=== PATIENT | female | born 1965 | race Caucasian/White ===

== ENCOUNTER 2019-11-21 16:29 | Emergency (ER) | payer OTHER, SELFPAY ==
--- NOTE | ~2019-11-21 | XR_ITS ---
EXAMINATION: XR chest 2V DATE: 11/21/2019 17:09 INDICATION: Palpitations. Heart murmur. Lung nodules. TECHNIQUE: PA and lateral views of the chest were obtained. COMPARISON: Chest radiograph dated 07/27/2017 FINDINGS: The lungs remain clear with no focal airspace opacities, pulmonary edema, pleural effusion or pneumot horax. The cardiomediastinal silhouette is normal. Mild S-shaped curvature of the thoracolumbar spine with mild spondylosis. IMPRESSION: 1. No acute cardiopulmonary disease. Reviewed, dictated and finalized at location A. 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
[2019-11-21 16:39] VITALS: BP 135/97; PULSE 52; RESP 19; TEMP 36.6; O2SAT 99
--- NOTE | 2019-11-21 16:42 | ECG_ITS ---
Measurements Intervals [place] Rate: 55 P: 50 DE: 136 QRS: 28 QRSD: 88 T: 36 QT: 404 QTc: 388 Interpretive Statements SINUS BRADYCARDIA INFERIOR INFARCT, AGE INDETERMINATE BORDERLINE ST ABNORMALITY- ANTEROLAT/LAT LEADS ABNORMAL ECG Electronically Signed On 11-21-2019 16:57:36 FIELD SUPERVISOR by Jah Ramos D.O.
[2019-11-21 17:30] LABS: Basophils Percent Auto 0.4 % (0.2-1.2); Eosinophils Absolute Auto 0.2 K/mm3 (0-0.3); Eosinophils Percent Auto 3.4 % (0-4.4); Hemoglobin 12.1 g/dL (12.0-15.0); Immature Granulocyte Absolute 0.01 K/mm3 (0.00-0.031); Immature Granulocyte Percent A 0.1 % (0-0.5); Lymphocytes Absolute Auto 2.31 K/mm3 (0.9-3.2); Lymphocytes Percent Auto 33.7 % (18.3-44.2); Mean Corpuscular HGB Conc 31.8 g/dl (32-36); Mean Corpuscular Hemoglobin 31.9 pg (26-34); Mean Corpuscular Volume 100.3 fl (80-100); Mean Platelet Volume 11.1 fl (7.4-10.4); Monocytes Absolute Auto 0.5 K/mm3 (0.1-0.6); Monocytes Percent Auto 7.2 % (2.6-8.5); Neutrophils Absolute Auto 3.8 K/mm3 (1.3-6.7); Neutrophils Percent Auto 55.2 % (45.5-73.1); Platelet Count Result 300 k/mm3 (150-375); Red Blood Count 3.79 M/mm3 (4.2-5.4); Red Cell Distribution Width 12.4 % (11.5-14.5); White Blood Count 6.9 K/mm3 (4.5-10.0)
[2019-11-21 17:33] LABS: Blood Urea Nitrogen 16 mg/dL (7-17); Carbon Dioxide 27 mmol/L (22-30); Chloride 98 mmol/L (98-107); Estimated CRCL calculation 91 ml/min; Estimated Glomerular Filt Rate > 60; Glucose 86 mg/dL (65-105); Sodium 133 mmol/L (137-145)
[2019-11-21 17:35] LABS: INR 0.9; Prothrombin Time 11.4 Seconds (11.1-14.7)
[2019-11-21 17:36] LABS: Partial Thromboplastin Time 30.3 SECONDS (22.3-36.8)
[2019-11-21 17:44] LABS: Troponin I < 0.012 ng/mL (0.000-0.034)
[2019-11-21 19:35] VITALS: BP 169/72; PULSE 48; RESP 13; O2SAT 99
--- NOTE | 2019-11-21 20:03 | ED.ARRPALP ---
HPI - Arrhythmia/Palpitations General Chief Complaint: Arrhythmia/Palpitations Stated Complaint: palpitaions Time Seen by Provider: 11/21/19 19:38 Source: patient and family Mode of arrival: ambulatory Limitations: no limitations History of Present Illness HPI narrative: Patient is a 54-year-old female who presents to emergency department noting that she has been having heart fluttering and palpitations that has increased over the last month has had them historically but they have increased and frequency noting that today she fell she had approximately 12 patient had a Holter monitor placed by primary care that she turned and which was reviewed and unremarkable. Patient notes that on occasion she has had a small amount of pain with flutters that lasts seconds and resolve patient had 1 today at 1:00. Patient notes that she also gets intermittent shortness of breath at times with exertion that resolves with rest. Patient also notes she has had some rhinorrhea. Patient has seen her primary care for this 1 time. On arrival patient in the room in no distress symptom-free. Patient notes she had recent blood work by primary care to include normal thyroid functioning Related Data Allergies Allergy/AdvReac Type Severity Reaction Status Date / Time baclofen Allergy Severe Gastrointestinal Verified 11/21/19 19:35 Upset Review of Systems Review of Systems: Narrative: CONSTITUTIONAL: Denies fever, chills, or sweats. EYES: Denies redness, or discharge. ENT: Denies rhinorrhea, congestion, sore throat, or otalgia. CARDIOVASCULAR: Denies palpitations, denies edema. RESPIRATORY: Denies cough or dyspnea. GASTROINTESTINAL: Denies abdominal pain, nausea, vomiting, or diarrhea. GENITOURINARY: Denies dysuria or hematuria. SKIN: Denies rash or itching. MUSCULOSKELETAL: Denies back pain, joint pain, or myalgia. NEUROLOGIC: Denies dizziness, or weakness. Positive for headache PSYCHIATRIC: Denies anxiety PMFSH Past Medical History Medical History Anxiety Migraine headache Family History Family History (Updated 07/24/16 @ 10:27 by DOCTOR UNKNOWN) Father Family history of malignant neoplasm Sibling Family history of malignant neoplasm Mother Family history of malignant neoplasm Patient's mother is Other Asthma Family history of osteoporosis Social History Social History Smoking status: Never smoker Second hand tobacco smoke exposure: No Alcohol intake: current Exam Narrative: Exam Narrative: GENERAL: Well-appearing, well-nourished, and in no acute distress. HEAD: Normocephalic, atraumatic. EYES: PERRLA and EOMI. ENT: Nares clear, no rhinorrhea or epistaxis. Mucous membranes moist. Oropharynx without tonsillar hypertrophy exudate or other lesions. Bilateral TMs pearly devlin nonbulging NECK: Supple. No adenopathy or masses. No carotid bruits or JVD CHEST: Clear to auscultation. No respiratory distress. No wheezes rales or rhonchi HEART: Regular rate and rhythm. No murmur heard. Normal peripheral pulses. ABDOMEN: Soft, nontender, nondistended, normal active bowel sounds. EXTREMITIES: Normal range of motion. No edema. SKIN: Warm, dry, no rash. NEURO: No focal deficits. Alert and oriented x3. Cranial nerves II through XII grossly intact. Normal speech PSYCH: Normal mood and affect. Course Vital Signs Vital signs: Vital Signs Temperature 97.8 F 11/21/19 16:39 Pulse Rate 52 L 11/21/19 16:39 Respiratory Rate 19 11/21/19 16:39 Blood Pressure 135/97 H 11/21/19 16:39 Pulse Oximetry 99 11/21/19 16:39 Temperature 97.8 F 11/21/19 16:39 Pulse Rate 48 L 11/21/19 19:35 Respiratory Rate 13 11/21/19 19:35 Blood Pressure 169/72 H 11/21/19 19:35 Pulse Oximetry 99 11/21/19 19:35 MDM - Arrhythmia/Palpitations Lab Data Result diagrams: 11/21/19 16:44
[2019-11-21 20:22] LABS: Troponin I < 0.012 ng/mL (0.000-0.034)
[2019-11-21 21:01] VITALS: BP 172/74; PULSE 67; RESP 20; O2SAT 100
== END 2019-11-21 21:04 | disposition home or self-care (01) ==
PROVIDERS: Emergency Provider Emergency Medicine
DX: R00.2 Palpitations (principal); R00.1 Bradycardia, unspecified; R94.31 Abnormal electrocardiogram [ECG] [EKG]
CPT/HCPCS: 36415; 71046; 80048; 84484; 85025; 85610; 85730; 93005; 99284

== ENCOUNTER 2020-06-19 17:56 | Emergency (ER) | payer OTHER, SELFPAY ==
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
[2020-06-19 18:05] VITALS: BP 176/79; PULSE 61; RESP 18; TEMP 37.6; O2SAT 100
[2020-06-19] MEDS: KETOROLAC (*BKC) 60 MG/2 ML VIAL IM (18:54)
[2020-06-19] MEDS: diazePAM 5 MG TABLET PO (18:54)
--- NOTE | 2020-06-19 19:05 | PC.NURSE ---
PT REPORT TO MADINA ADAMES AT THIS TIME, HE HAS ASSUMED PT CARE.
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
[2020-06-19 20:11] VITALS: BP 140/64; PULSE 56; RESP 18; O2SAT 96
== END 2020-06-19 20:24 | disposition home or self-care (01) ==
PROVIDERS: Emergency Provider Emergency Medicine
DX: S16.1XXA Strain of muscle, fascia and tendon at neck level, initial encounter (principal); S39.012A Strain of muscle, fascia and tendon of lower back, initial encounter; V48.5XXA Car driver injured in noncollision transport accident in traffic accident, initial encounter
CPT/HCPCS: 72125; 72131; 96372; 99284; A9270; J1885; L0140

== ENCOUNTER 2020-06-20 12:41 | Emergency (ER) | payer OTHER, SELFPAY ==
--- NOTE | ~2020-06-20 | CT_ITS ---
EXAMINATION: CT abdomen pelvis w con INDICATION: Left upper quadrant pain TECHNIQUE: Computed tomographic images of the abdomen and pelvis were obtained after the administrati on of 100 cc of Omnipaque 350 intravenous contrast. The dose-length product (DLP) was 471.04 mGy-cm. Automated exposure control and iterative reconstruction technique were employed. COMPARISON: 02/22/2018 FINDINGS: Minimal dependent atelectasis is present in the lung bases. The heart size is normal. Stabl e nodules of the left lower lobe are consistent with old granulomatous disease. The liver, spleen, pa ncreas, gallbladder, and adrenal glands are normal. Cysts of the kidneys measure up to 11 mm on the l eft. No pathologically enlarged abdominal or pelvic lymph nodes are identified. There is no free intr aperitoneal gas or evidence of bowel obstruction. A tiny fat-containing umbilical hernia is noted. IMPRESSION: 1. No CT correlate for the patient's symptoms. Reviewed, dictated and finalized at location A.
[2020-06-20 12:45] VITALS: BP 143/79; PULSE 82; RESP 20; TEMP 36.9; O2SAT 98
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
[2020-06-20 13:09] LABS: Basophils Absolute Auto 0.1 K/mm3 (0.0-0.1); Basophils Percent Auto 0.4 % (0.2-1.2); Eosinophils Absolute Auto 0.3 K/mm3 (0-0.3); Eosinophils Percent Auto 1.9 % (0-4.4); Hematocrit 39.6 % (37.0-47.0); Hemoglobin 13.4 g/dL (12.0-15.0); Immature Granulocyte Absolute 0.04 K/mm3 (0.00-0.031); Immature Granulocyte Percent A 0.3 % (0-0.5); Lymphocytes Absolute Auto 1.62 K/mm3 (0.9-3.2); Lymphocytes Percent Auto 12.1 % (18.3-44.2); Mean Corpuscular HGB Conc 33.8 g/dl (32-36); Mean Corpuscular Hemoglobin 32.4 pg (26-34); Mean Corpuscular Volume 95.7 fl (80-100); Mean Platelet Volume 10.7 fl (7.4-10.4); Monocytes Absolute Auto 0.8 K/mm3 (0.1-0.6); Monocytes Percent Auto 5.7 % (2.6-8.5); Neutrophils Absolute Auto 10.7 K/mm3 (1.3-6.7); Neutrophils Percent Auto 79.6 % (45.5-73.1); Platelet Count Result 343 k/mm3 (150-375); Red Blood Count 4.14 M/mm3 (4.2-5.4); Red Cell Distribution Width 12.7 % (11.5-14.5); White Blood Count 13.4 K/mm3 (4.5-10.0)
[2020-06-20] MEDS: SODIUM CHLORIDE 0.9% IV 1,000 ML 999 ML IV CONT (13:09)
[2020-06-20] MEDS: ONDANSETRON INJ 4 MG/2 ML VIAL IV PUSH (13:10)
[2020-06-20 13:14] LABS: Add Urine Microscopic? YES; Appearance Urine Clear (Clear); Bacteria Urine Trace /hpf; Bilirubin Urine Negative (Negative); Blood Urine 1+ (Negative); Color Urine Yellow (Yellow); Glucose Urine UA Negative (Negative); Ketones Urine Trace mg/dL (Negative); Leukocyte Esterase Ur Negative LEU/UL (Negative); Mucus Urine Few /lpf; Nitrate Urine Negative (Negative); Protein Urine 1+ mg/dL (Negative); RBC Urine 0-2 /hpf (0-2); Specific Grav Ur 1.014 (1.001-1.035); Squamous Epithelial Cell Urine Occasional /hpf (Few); Urobilinogen Urine Negative mg/dL (<2.0); WBC Urine 0-3 /hpf
[2020-06-20 13:18] LABS: Prothrombin Time 12.4 Seconds (11.1-14.7)
[2020-06-20 13:19] LABS: Partial Thromboplastin Time 32.5 SECONDS (22.3-36.8)
[2020-06-20 13:20] LABS: Alanine Aminotransferase 21 U/L (4-35); Albumin Level 4.7 g/dL (3.5-5.1); Alkaline Phosphatase 81 U/L (38-126); Anion Gap 9 mmol/L (8-16); Aspartate Amino Transferase 25 U/L (14-36); Bilirubin,Total 0.4 mg/dL (0.2-1.3); Blood Urea Nitrogen 24 mg/dL (7-17); Carbon Dioxide 23 mmol/L (22-30); Chloride 107 mmol/L (98-107); Estimated Glomerular Filt Rate > 60; Glucose 106 mg/dL (65-105); Lipase 160 U/L (23-300); Potassium 4.2 mmol/L (3.4-5.0); Sodium 139 mmol/L (137-145)
[2020-06-20] MEDS: KETOROLAC 30 MG/ML VIAL (*BKC) IV PUSH (14:13)
== END 2020-06-20 14:40 | disposition home or self-care (01) ==
PROVIDERS: Emergency Provider Emergency Medicine
DX: S39.011A Strain of muscle, fascia and tendon of abdomen, initial encounter (principal); R11.2 Nausea with vomiting, unspecified; V48.5XXA Car driver injured in noncollision transport accident in traffic accident, initial encounter
CPT/HCPCS: 36415; 74177; 80053; 81001; 83690; 85025; 85610; 85730; 96361; 96374; 96375; 99284; J1885; J2405; J7030; Q9967

== ENCOUNTER 2020-07-21 13:23 | Emergency (ER) | payer OTHER, SELFPAY ==
[2020-07-21 13:46] VITALS: BP 149/68; PULSE 52; RESP 18; TEMP 36.7; O2SAT 100
--- NOTE | 2020-07-21 13:50 | ED.SKABFB ---
HPI - Skin/Abscess/Foreign Bdy General Chief complaint: Skin/Abscess/Foreign Body Stated complaint: animal bite Time Seen by Provider: 07/21/20 13:47 Source: patient Mode of arrival: ambulatory Limitations: no limitations History of Present Illness MD complaint: other (dog bite) Related Data Home Medications Medication Instructions Recorded Confirmed acetaminophen 1,000 mg PO DAILY 07/21/20 07/21/20 gabapentin 100 mg PO DAILY 07/21/20 07/21/20 ibuprofen 800 mg PO BID 07/21/20 07/21/20 Allergies Allergy/AdvReac Type Severity Reaction Status Date / Time baclofen Allergy Severe Gastrointestinal Verified 07/21/20 13:41 Upset Review of Systems Review of Systems: Narrative: Patient is a 55-year-old female who presents with a dog bite to left hand. Patient reports she was playing with her puppy when it punctured her hand. Patient reports a small amount of blood. Able to flex and extend thumb without difficulty, full range of motion. She denies numbness or tingling. She is unsure when her last tetanus shot was. She denies other injuries and reports dog is up to date on all vaccinations. [facility] Family History Family History Father Family history of malignant neoplasm Sibling Family history of malignant neoplasm Mother Family history of malignant neoplasm Patient's mother is Other Asthma Family history of osteoporosis Social History Social History Smoking status: Never smoker Second hand tobacco smoke exposure: No Alcohol intake: current Gender identity (if verbalized by the patient): Female Exam Narrative: Exam Narrative: GENERAL: Well-appearing, well-nourished, and in no acute distress. HEAD: Normocephalic, atraumatic. EYES: No redness or drainage. Conjunctiva are normal. ENT: Mucous membranes pink and moist. CHEST: No respiratory distress. Clear to auscultation. HEART: Regular rate and rhythm. No murmur appreciated. Normal peripheral pulses. SKIN: Small puncture wound with hematoma to base of left thumb area. NEURO: No focal deficits. Alert and oriented x3. Gait steady. PSYCH: Normal affect. No signs of depression or anxiety. Course Vital Signs Vital signs: Vital Signs Temperature 36.7 C 07/21/20 13:46 Pulse Rate 52 L 07/21/20 13:46 Respiratory Rate 18 07/21/20 13:46 Blood Pressure 149/68 H 07/21/20 13:46 Pulse Oximetry 100 07/21/20 13:46 Temperature 36.7 C 07/21/20 13:46 Pulse Rate 52 L 07/21/20 13:46 Respiratory Rate 18 07/21/20 13:46 Blood Pressure 149/68 H 07/21/20 13:46 Pulse Oximetry 100 07/21/20 13:46 Reviewed. Patient has been instructed to follow-up with her PCP regarding her blood pressure. MDM - Skin/Abscess/Foreign Bdy MDM Narrative Medical decision making narrative: Patient has small puncture wound to left hand from dog. Tetanus shot updated at urgent care, patient started on Augmentin at this time. Bleeding is controlled, wound cleansed and antibiotic ointment applied. Patient to monitor for signs of infection. Patient is stable for discharge to home with outpatient follow-up as needed. Critical Care Time Critical Care Time Critical Care Time: No Discharge Plan Discharge Clinical Impression: Dog bite Patient Disposition: Home, Self-Care Condition: Stable Instructions: Antibiotic Form, Animal Bite (ED) Additional Instructions: Keep wound clean and dry, topical Neosporin. Take antibiotics as directed. Monitor for signs of infection. Follow-up with your PCP as needed. Prescriptions: New amoxicillin-pot clavulanate 875-125 mg tablet 1 tablet PO Q12H 5 Days Qty: 10 RF: 0 No Action ibuprofen 800 mg Tablet 800 mg PO BID RF: 0 acetaminophen 500 mg Tablet 1,000 mg PO DAILY RF: 0 gabapentin 100 mg capsule 100 mg PO DAILY RF: 0 Follow-up/Referrals:
[2020-07-21] MEDS: TETANUS,DIPHTHERIA,AC PERTUSSIS ADULT (0.5 ML) BOOSTRIX IM (13:55)
--- NOTE | 2020-07-21 18:31 | PC.NURSE ---
1400 no reaction from tetanus shot. Tetanus information sheet given to pt.
== END 2020-07-21 14:07 | disposition home or self-care (01) ==
PROVIDERS: Emergency Provider Nurse Practitioner
DX: S61.432A Puncture wound without foreign body of left hand, initial encounter (principal); W54.0XXA Bitten by dog, initial encounter; Z23 Encounter for immunization
CPT/HCPCS: 90471; 90715; 99213; G0463

== ENCOUNTER 2020-11-22 16:22 | Emergency (ER) | payer OTHER, SELFPAY ==
--- NOTE | ~2020-11-22 | CT_ITS ---
EXAMINATION: CT abdomen pelvis w con DATE: 11/22/2020 19:34 INDICATION: Left lower quadrant pain TECHNIQUE: Computed tomography (CT) of the abdomen and pelvis was performed with 100 cc Omnipaque 350 intravenous contrast. The dose-length product was 371.81 mGy-cm. Automated exposure control and iter ative reconstruction technique were employed. COMPARISON: CT dated 06/20/2020. FINDINGS: Heart size normal. No significant pleural or pericardial effusion. No significant vascular abnormality. No lymphadenopathy. There is diffuse abnormal thickening of the stomach with edema, cons istent with gastritis. No evidence for perforation. Fatty infiltration of the liver. The spleen, pancreas, adrenal glands are unremarkable. There are sma ll low-density lesions in both kidneys, most likely cysts. There is a 3 mm nonobstructing left renal stone. Gallbladder is present. Nonobstructive bowel gas pattern. No free air or free fluid. Small fat -containing umbilical hernia. Mild lumbar spondylosis. IMPRESSION: 1. Gastric wall thickening/edema, compatible with gastritis. Reviewed, dictated and finalized at location A. 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
[2020-11-22 16:49] VITALS: BP 163/69; PULSE 62; RESP 17; TEMP 36.1; O2SAT 100
[2020-11-22 17:03] LABS: Basophils Percent Auto 0.5 % (0.2-1.2); Eosinophils Absolute Auto 0.2 K/mm3 (0-0.3); Eosinophils Percent Auto 2.6 % (0-4.4); Hematocrit 39.3 % (37.0-47.0); Hemoglobin 12.7 g/dL (12.0-15.0); Immature Granulocyte Absolute 0.02 K/mm3 (0.00-0.031); Immature Granulocyte Percent A 0.3 % (0-0.5); Lymphocytes Absolute Auto 1.59 K/mm3 (0.9-3.2); Lymphocytes Percent Auto 21.5 % (18.3-44.2); Mean Corpuscular HGB Conc 32.3 g/dl (32-36); Mean Corpuscular Hemoglobin 32.1 pg (26-34); Mean Corpuscular Volume 99.2 fl (80-100); Monocytes Absolute Auto 0.4 K/mm3 (0.1-0.6); Monocytes Percent Auto 4.7 % (2.6-8.5); Neutrophils Absolute Auto 5.2 K/mm3 (1.3-6.7); Neutrophils Percent Auto 70.4 % (45.5-73.1); Platelet Count Result 336 k/mm3 (150-375); Red Blood Count 3.96 M/mm3 (4.2-5.4); Red Cell Distribution Width 12.3 % (11.5-14.5); White Blood Count 7.4 K/mm3 (4.5-10.0)
[2020-11-22 17:07] LABS: Add Urine Microscopic? YES; Appearance Urine Clear (Clear); Bacteria Urine Trace /hpf; Bilirubin Urine Negative (Negative); Blood Urine Negative (Negative); Color Urine Yellow (Yellow); Glucose Urine UA Negative (Negative); Ketones Urine 2+ mg/dL (Negative); Leukocyte Esterase Ur Negative LEU/UL (Negative); Mucus Urine Few /lpf; Nitrate Urine Negative (Negative); Protein Urine 1+ mg/dL (Negative); Specific Grav Ur 1.028 (1.001-1.035); Squamous Epithelial Cell Urine Few /hpf (Few); Urobilinogen Urine Negative mg/dL (<2.0); WBC Urine 0-3 /hpf
[2020-11-22 17:18] LABS: Alanine Aminotransferase 25 U/L (4-35); Albumin Level 4.9 g/dL (3.5-5.1); Alkaline Phosphatase 100 U/L (38-126); Anion Gap 10 mmol/L (8-16); Aspartate Amino Transferase 33 U/L (14-36); Bilirubin,Total 0.4 mg/dL (0.2-1.3); Blood Urea Nitrogen 22 mg/dL (7-17); Calcium 10.3 mg/dL (8.4-10.2); Carbon Dioxide 22 mmol/L (22-30); Chloride 109 mmol/L (98-107); Estimated CRCL calculation 77 ml/min; Estimated Glomerular Filt Rate > 60; Glucose 93 mg/dL (65-105); Lipase 387 U/L (23-300); Potassium 4.2 mmol/L (3.4-5.0); Sodium 141 mmol/L (137-145)
--- NOTE | 2020-11-22 18:53 | ED.ABDPAIN ---
HPI - Abdominal Pain General Chief Complaint: Abdominal Pain Stated Complaint: Left Flank Pain Time Seen by Provider: 11/22/20 18:40 Source: patient Mode of arrival: ambulatory Limitations: no limitations History of Present Illness HPI narrative: Patient is a 55-year-old female who presents to emergency department for evaluation of left-sided upper abdominal pain radiating to the back that has been present now for a couple of days has had worsening pain and is now having difficulty tolerating p.o. intake patient denies similar occurrence in the past sick contacts URI symptoms or any vaginal or urinary symptoms patient notes that she has had some loose stools over the last couple of weeks. Patient denies similar occurrence in the past as noted on arrival appears to be uncomfortable but in no distress has not taken anything for her symptoms Related Data Allergies Allergy/AdvReac Type Severity Reaction Status Date / Time baclofen Allergy Severe Gastrointestinal Verified 11/22/20 16:49 Upset Review of Systems Review of Systems: All systems reviewed & are unremarkable except as noted in HPI and below PMFSH Past Medical History Medical History (Updated 11/22/20 @ 20:11 by Gomez Burnham PA-C) Anxiety Migraine headache Surgical History Surgical History (Updated 11/22/20 @ 18:56 by Gomez Burnham PA-C) H/O section Family History Family History Father Family history of malignant neoplasm Sibling Family history of malignant neoplasm Mother Family history of malignant neoplasm Patient's mother is Other Asthma Family history of osteoporosis Social History Social History Smoking status: Never smoker Second hand tobacco smoke exposure: No Alcohol intake: current Gender identity (if verbalized by the patient): Female Exam Narrative: Exam Narrative: GENERAL: Well-appearing, well-nourished, and in no acute distress. HEAD: Normocephalic, atraumatic. EYES: PERRLA and EOMI. ENT: Nares clear, no rhinorrhea or epistaxis. Mucous membranes moist. CHEST: Clear to auscultation. No respiratory distress. No wheezes rales or rhonchi HEART: Regular rate and rhythm. No murmur heard. Normal peripheral pulses. ABDOMEN: Soft, left upper quadrant tenderness to palpation with voluntary guarding, nondistended, normal active bowel sounds. EXTREMITIES: Normal range of motion. No edema. SKIN: Warm, dry, no rash. NEURO: No focal deficits. Alert and oriented x3. PSYCH: Normal mood and affect. Course Course Emergency Course: Patient in the room in no distress aware of case findings treatment plan and diagnosis agreeing to follow-up as directed felt appropriate for outpatient reevaluation no high risk changes in the blood work or imaging patient will also be referred to gastroenterology Vital Signs Vital signs: Vital Signs Temperature 97 F L 11/22/20 16:49 Pulse Rate 62 11/22/20 16:49 Respiratory Rate 17 11/22/20 16:49 Blood Pressure 163/69 H 11/22/20 16:49 Pulse Oximetry 100 11/22/20 16:49 Temperature 97 F L 11/22/20 16:49 Pulse Rate 62 11/22/20 16:49 Respiratory Rate 17 11/22/20 16:49 Blood Pressure 163/69 H 11/22/20 16:49 Pulse Oximetry 100 11/22/20 16:49 MDM - Abdominal Pain MDM Narrative Medical decision making narrative: Patient in the room no distress aware of case findings treatment plan diagnosis agreeing to follow-up with gastroenterology and primary care given reasons to return Lab Data Result diagrams: 11/22/20 16:54 11/22/20 16:54 Labs: Lab Results 11/22/20 11/22/20 11/22/20 Range/Units 16:54 16:54 16:54 WBC 7.4 (4.5-10.0) K/mm3 RBC 3.96 L (4.2-5.4) M/mm3 Hgb 12.7 (12.0-15.0) g/dL Hct 39.3 (37.0-47.0) % MCV 99.2 (80-100) fl MCH 32.1 (26-34) pg MCHC 32.3
[2020-11-22] MEDS: SODIUM CHLORIDE 0.9% IV 1,000 ML 999 ML IV CONT (19:12)
[2020-11-22] MEDS: FAMOTIDINE 20 MG/2 ML VIAL IV PUSH (19:12)
[2020-11-22] MEDS: ONDANSETRON INJ 4 MG/2 ML VIAL IV PUSH ×2 (19:12→20:01)
[2020-11-22] MEDS: MORPHINE SULFATE (*CRX) 4 MG/ML INJ IV PUSH (19:47)
[2020-11-22] MEDS: HYOSCYAMINE SULFATE 0.125 MG TABLET PO (20:30)
[2020-11-22 20:45] VITALS: BP 138/87; PULSE 80; RESP 18; O2SAT 99
== END 2020-11-22 20:47 | disposition home or self-care (01) ==
PROVIDERS: Emergency Provider Emergency Medicine
DX: R10.12 Left upper quadrant pain (principal); F41.9 Anxiety disorder, unspecified
CPT/HCPCS: 36415; 74177; 80053; 81001; 81025; 83690; 85025; 96365; 96375; 96376; 99284; A9270; J0131; J2270; J2405; J7030; Q9967

== ENCOUNTER 2023-04-10 21:52 | Emergency (ER) | payer OTHER, SELFPAY ==
--- NOTE | ~2023-04-10 | CT_ITS ---
EXAMINATION: CT abdomen pelvis wo con DATE: 04/11/2023 01:36 INDICATION: Left flank pain, hematuria TECHNIQUE: Computed tomography (CT) of the abdomen and pelvis was performed without intravenous contr ast. Automated exposure control and iterative reconstruction technique were employed. Exam dose: 585 .96 mGy-cm total exam DLP. COMPARISON: November 22, 2020 CT abdomen pelvis with IV contrast material FINDINGS: Occasional bilateral small peripheral lower lobe pulmonary nodular densities including one in the right lower lobe with density measurement consistent with calcification. Most likely these are due to old pulmonary granulomatous disease. The lung bases are clear of infiltrate or consolidation. Normal heart size. No pericardial or pleural effusion. The liver, spleen, gallbladder, bile ducts, pancreas, pancreatic duct and adrenal glands are unremark able on this limited noncontrast examination. No right renal mass lesion or right urinary tract calculus is evident. No apparent left renal mass lesion noted on this limited noncontrast examination. Several nonobstructing left renal punctate calculus. Approximately 3 x 5 mm proximal left ureteral calculus with moderate left hydronephrosis. Normal caliber of the abdominal aorta. No intraperitoneal or retroperitoneal or pelvic mass lesion or adenopathy or ascites. The uterus, adnexal areas and urinary bladder are unremarkable. Mild colonic diverticulosis; no CT evidence of diverticulitis. No bowel obstruction or intraperitonea l free air. No suspicious osteolytic or osteoblastic lesions. IMPRESSION: 3 x 5 mm proximal left ureteral calculus with moderate left hydronephrosis Technique axial subtle pinpoint nonobstructing left renal calculus. Reviewed, dictated and finalized at [facility]. Reviewed, dictated and finalized at [facility]. IMPRESSION: 3 x 5 mm proximal left ureteral calculus with moderate left hydron ephrosis Technique axial subtle pinpoint nonobstructing left renal calculus.
[2023-04-10 22:06] VITALS: BP 160/57; PULSE 65; RESP 19; TEMP 36.2; O2SAT 100
[2023-04-10 22:43] LABS: Basophils Percent Auto 0.4 % (0.2-1.2); Eosinophils Absolute Auto 0.2 K/mm3 (0-0.3); Hematocrit 36.7 % (37.0-47.0); Hemoglobin 12.2 g/dL (12.0-15.0); Immature Granulocyte Absolute 0.03 K/mm3 (0.00-0.031); Immature Granulocyte Percent A 0.3 % (0-0.5); Lymphocytes Absolute Auto 2.61 K/mm3 (0.9-3.2); Lymphocytes Percent Auto 27.6 % (18.3-44.2); Mean Corpuscular HGB Conc 33.2 g/dl (32-36); Mean Corpuscular Hemoglobin 33.3 pg (26-34); Mean Corpuscular Volume 100.3 fl (80-100); Mean Platelet Volume 9.6 fl (7.4-10.4); Monocytes Absolute Auto 0.7 K/mm3 (0.1-0.6); Monocytes Percent Auto 7.5 % (2.6-8.5); Neutrophils Absolute Auto 5.9 K/mm3 (1.3-6.7); Neutrophils Percent Auto 62.2 % (45.5-73.1); Platelet Count Result 320 k/mm3 (150-375); Red Blood Count 3.66 M/mm3 (4.2-5.4); Red Cell Distribution Width 12.6 % (11.5-14.5); White Blood Count 9.5 K/mm3 (4.5-10.0)
[2023-04-10 22:59] LABS: Alanine Aminotransferase 20 U/L (6-35); Albumin Level 4.6 g/dL (3.5-5.1); Alkaline Phosphatase 85 U/L (38-126); Anion Gap 7 mmol/L (8-16); Aspartate Amino Transferase 31 U/L (14-36); Bilirubin,Total 0.4 mg/dL (0.2-1.3); Blood Urea Nitrogen 20 mg/dL (7-17); Calcium 9.7 mg/dL (8.4-10.2); Carbon Dioxide 26 mmol/L (22-30); Chloride 105 mmol/L (98-107); Estimated Glomerular Filt Rate > 60; Glucose 117 mg/dL (65-110); Lipase 76 U/L (23-300); Potassium 3.7 mmol/L (3.4-5.0); Sodium 138 mmol/L (137-145)
[2023-04-10 23:16] LABS: Appearance Urine Cloudy (Clear); Bacteria Urine 1+ /hpf; Bilirubin Urine Negative (Negative); Blood Urine 3+ (Negative); Color Urine Dark Yellow (Yellow); Glucose Urine UA Negative (Negative); Ketones Urine Trace mg/dL (Negative); Leukocyte Esterase Ur Trace LEU/UL (Negative); Need Manual Microscopic Reviewed; Nitrate Urine Negative (Negative); Non Pathogenic Casts 0-2; Protein Urine 1+ mg/dL (Negative); RBC Urine >100 /hpf (0-2); Specific Grav Ur 1.023 (1.001-1.035); Squamous Epithelial Cell Urine Few /hpf (Few); Urobilinogen Urine 0.2 mg/dL (<2.0); WBC Urine 0-5 /hpf; pH Urine 5.5 (5.0-9.0)
[2023-04-10 23:30] LABS: Add Urine Microscopic? YES
[2023-04-11 00:37] VITALS: PULSE 63; RESP 14; TEMP 37; O2SAT 98
--- NOTE | 2023-04-11 01:10 | ED.GENADULT ---
HPI - General Adult General Chief complaint: Abdominal Pain Stated complaint: abdominal pain/back pain/N/V Time Seen by Provider: 04/11/23 00:49 History of Present Illness HPI narrative: Patient is a 57-year-old female here for evaluation of left flank pain x1 day. Patient states the pain comes and goes in waves, when it is there is severe in nature and wraps around to her left lower quadrant. It is associate with nausea but no vomiting. Reports intermittent chills no fever. No history of kidney stones. No dysuria, but reports some degree of chronic urinary urgency since she had children. Related Data Allergies Allergy/AdvReac Type Severity Reaction Status Date / Time baclofen Allergy Severe Gastrointestinal Verified 04/10/23 22:09 Upset Review of Systems Review of Systems: Gen.: Denies fevers or chills Eyes: Denies eye pain or visual change ENT: Denies congestion Respiratory: Denies shortness of breath or cough CV: Denies chest pain or palpitations GI: Reports abdominal pain denies burning, urgency, frequency or hematuria Musculoskeletal: Reports flank pain Neuro: Denies numbness, tingling, weakness or focal weakness Skin: Denies rash Except as documented, all other systems reviewed and negative [facility] Past Medical History Medical History Anxiety Migraine headache Surgical History Surgical History H/O section Family History Family History Father Family history of malignant neoplasm Sibling Family history of malignant neoplasm Mother Family history of malignant neoplasm Patient's mother is Other Asthma Family history of osteoporosis Social History Social History Smoking status: Never smoker Second hand tobacco smoke exposure: No Alcohol intake: current Gender identity (if verbalized by the patient): Female Exam Narrative: APPEARANCE: Uncomfortable appearing Head: Normocephalic and atraumatic. EYES: PERRLA/EOMI, conjunctivae clear NOSE: No nasal drainage EARS: External ear normal in appearance THROAT: Oropharynx is clear. Mucous membranes are moist. NECK: Supple. No adenopathy, no masses. RESPIRATORY: Airway patent, respirations nonlabored. Clear to auscultation bilaterally, no rales, rhonchi, wheezing. CARDIOVASCULAR: Regular rate and rhythm without murmurs, rubs, or gallops. ABDOMINAL: Normoactive bowel sounds. Soft, nontender, nondistended. No rebound tenderness or guarding. MUSCULOSKELETAL: Extremities are warm and well-perfused. Moves all extremities well. No edema. NEURO: Normal speech. No focal neurologic deficits. SKIN: Skin is warm and dry. No rashes. PSYCHIATRIC: Normal affect/mood. Course Vital Signs Vital signs: Vital Signs Temperature 97.1 F L 04/10/23 22:06 Pulse Rate 65 04/10/23 22:06 Respiratory Rate 19 04/10/23 22:06 Blood Pressure 160/57 H 04/10/23 22:06 Pulse Oximetry 100 04/10/23 22:06 Oxygen Delivery Room Air 04/10/23 22:06 Temperature 98.6 F 04/11/23 00:37 Pulse Rate 67 04/11/23 02:18 Respiratory Rate 14 04/11/23 02:18 Blood Pressure 133/64 04/11/23 02:18 Pulse Oximetry 99 04/11/23 02:18 Oxygen Delivery Room Air 04/10/23 22:06 Medical Decision Making MDM Narrative Medical decision making narrative: 57-year-old female here for evaluation of left flank pain, nausea and chills at home. She has evidence of 3 mm proximal ureteral stone on the left with moderate hydronephrosis. Her kidney function is normal and there is no evidence of infection on her urinalysis. Patient feeling greatly improved after pain meds and antiemetics. She would like to go home at this time. She is refusing KUB to check progression of the stone. We wi
[2023-04-11] MEDS: ONDANSETRON INJ 4 MG/2 ML VIAL IV PUSH ×2 (01:36→02:41)
[2023-04-11] MEDS: HYDROmorphone HCL INJ (*CRX) 1 MG/ML SYR 0.5 MG IV PUSH ×2 (01:37→02:43)
[2023-04-11 02:18] VITALS: BP 133/64; PULSE 67; RESP 14; O2SAT 99
[2023-04-11 03:23] VITALS: BP 116/77; PULSE 77; RESP 18; O2SAT 99
== END 2023-04-11 03:24 | disposition home or self-care (01) ==
PROVIDERS: Emergency Medicine; Emergency Provider Physician Assistant
DX: N20.1 Calculus of ureter (principal)
CPT/HCPCS: 36415; 74176; 80053; 81001; 81025; 83690; 85025; 96374; 96375; 96376; 99284; J1170; J2405